=== PATIENT | female | born 1965 | race Caucasian/White ===

== ENCOUNTER 2020-05-26 23:29 | Emergency (ER) | payer OTHER ==
[~2020-05-26] VITALS: Ht 165.1 cm; Wt 108.9 kg
[2020-05-26 23:35] VITALS: Ht 165.1 cm; Wt 108.9 kg
[2020-05-27 01:28] VITALS: BP 124/68
== END 2020-05-27 01:28 | disposition home or self-care (01) ==
LOC: ED 23:29
DX: S01.91XA Laceration without foreign body of unspecified part of head, initial encounter (principal); V49.9XXA Car occupant (driver) (passenger) injured in unspecified traffic accident, initial encounter; Y93.89 Activity, other specified; Y92.89 Other specified places as the place of occurrence of the external cause; Y99.8 Other external cause status
CPT/HCPCS: 90715